=== PATIENT | male | born 1990 | race Caucasian/White ===

== ENCOUNTER 2018-04-27 19:34 | Emergency (ER) | payer OTHER ==
[~2018-04-27] VITALS: Ht 175.3 cm; Wt 68.0 kg
[~2018-04-27 19:34] MED LIST: AMBIEN 5 MG TABL5 M1 PO; AZITHROMYCIN 2250 MG PO; BUSPAR30 MG PO; CELEXA40 MG PO; DOXYCYCLINE 10100 MG PO; FLOMAX0.4 MG PO; IBUPROFEN 800800 M1 PO; LAMICTAL100 MG PO; MEDROL DOSPAK21 TAB PO; NOHOMEMEDICATIONS; NORCO 5-325 TA1 EACH PO; PROMETHAZINE/C118 ML PO; PROZAC40 MG PO; RITALIN20 MG PO; TAMSULOSIN HCL0.4 M1; ZOFRAN ODT4 MG PO; ZPAK PO; [UNRECOGNIZED DRUG - REMARK]
[2018-04-27] MEDS ORDERED: NORCO 5-325 TA1 EAC1 PO (20:16)
[2018-04-27] MEDS ORDERED: ERYTHROMYCIN E3.5 G2 OPHTHALMIC (20:16)
[2018-04-27] MEDS ORDERED: CYCLOPENTOLA1 %/2 M1 OPHTHALMIC (20:16)
[2018-04-27 20:27] VITALS: BP 147/84
== END 2018-04-27 20:29 | disposition home or self-care (01) ==
LOC: M.ERS 19:34
DX: S05.02XA Injury of conjunctiva and corneal abrasion without foreign body, left eye, initial encounter (principal); F17.200 Nicotine dependence, unspecified, uncomplicated; Z88.2 Allergy status to sulfonamides; W54.0XXA Bitten by dog, initial encounter; Y93.89 Activity, other specified; Y92.89 Other specified places as the place of occurrence of the external cause; Y99.8 Other external cause status

== ENCOUNTER 2019-04-26 16:50 | Emergency (ER) | payer OTHER ==
[~2019-04-26] VITALS: Ht 175.3 cm; Wt 68.0 kg
[~2019-04-26 16:50] MED LIST changes: +CYCLOPENTOLA1 %/2 M1 OPHTHALMIC; +ERYTHROMYCIN E3.5 G2 OPHTHALMIC; +NORCO 5-325 TA1 EAC1 PO
[2019-04-26] MEDS ORDERED: NAPROSYN500 M1 PO (17:02)
[2019-04-26] MEDS ORDERED: TIZANIDINE HCL 22 M1 PO (17:02)
[2019-04-26] MEDS ORDERED: AMBIEN CR12.5 MG PO (17:02)
[2019-04-26 17:24] LABS: INFLUENZA A ANTIGEN Positive (Negative); INFLUENZA B ANTIGEN Negative (Negative)
[2019-04-26] MEDS ORDERED: MEDROLDOSEPACK PO (18:12)
[2019-04-26] MEDS ORDERED: VENTOLIN HFA 1818 GM INH (18:12)
[2019-04-26] MEDS ORDERED: TAMIFLU75 MG PO (18:12)
[2019-04-26 18:29] VITALS: BP 131/78
== END 2019-04-26 18:30 | disposition home or self-care (01) ==
LOC: M.ERS 16:50
PROVIDERS: Nurse Practitioner Family
DX: J10.1 Influenza due to other identified influenza virus with other respiratory manifestations (principal); Z87.442 Personal history of urinary calculi; Z88.2 Allergy status to sulfonamides

== ENCOUNTER 2019-07-04 21:33 | Emergency (ER) | payer OTHER ==
[~2019-07-04] VITALS: Ht 172.7 cm; Wt 65.8 kg
[~2019-07-04 21:33] MED LIST changes: +AMBIEN CR12.5 MG PO; +MEDROLDOSEPACK PO; +NAPROSYN500 M1 PO; +TAMIFLU75 MG PO; +TIZANIDINE HCL 22 M1 PO; +VENTOLIN HFA 1818 GM INH
[2019-07-04 23:19] VITALS: BP 120/60
--- NOTE | 2019-07-05 08:57 | EKG ---
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
== END 2019-07-04 23:19 | disposition home or self-care (01) ==
LOC: M.ERS 21:33
DX: J21.9 Acute bronchiolitis, unspecified (principal); R07.89 Other chest pain; R09.1 Pleurisy; Z88.2 Allergy status to sulfonamides; Z87.442 Personal history of urinary calculi

== ENCOUNTER 2020-04-06 05:51 | Emergency (ER) | payer OTHER ==
[~2020-04-06] VITALS: Ht 175.3 cm; Wt 68.0 kg
[2020-04-06 06:19] LABS: ABSOLUTE BASOPHILS 0.1 thou/uL (0.0-0.2); ABSOLUTE EOSINOPHILS 0.3 thou/uL (0.0-0.7); ABSOLUTE LYMPHOCYTES 3.3 thou/uL (0.8-5.3); ABSOLUTE MONOCYTES 0.7 thou/uL (0.0-1.2); ABSOLUTE NEUTROPHILS 4.3 thou/uL (1.6-8.1); BASOPHILS 0.9 %; EOSINOPHILS 3.6 %; HEMOGLOBIN 15.1 gm/dL (14.0-18.0); LYMPHOCYTES 38.1 %; MCH 28.8 pg (26.0-34.0); MCHC 33.5 g/dL (28.0-37.0); MCV 85.9 fL (80.0-100.0); MONOCYTES 8.4 %; MPV 7.6 fl. (7.2-11.1); NUCLEATED RBCS 0 /100WBC; PLATELET COUNT* 266 thou/uL (150-400); RBC 5.24 mil/uL (4.50-6.00); RDW-CV 13.8 % (10.5-14.5); WBC 8.7 thou/uL (4.0-11.0)
[2020-04-06 06:26] LABS: CALCIUM 8.6 mg/dL (8.5-10.1); POTASSIUM 3.8 mmol/L (3.5-5.1)
[2020-04-06 06:33] LABS: ALBUMIN 3.9 g/dL (3.4-5.0); TOTAL BILIRUBIN 1.3 mg/dL (<0.1-1.0); TOTAL PROTEIN 7.2 g/dL (6.4-8.2)
[2020-04-06 07:13] LABS: URINE BILIRUBIN NEGATIVE (Negative); URINE BLOOD NEGATIVE (Negative); URINE CLARITY SL CLOUDY; URINE COLOR YELLOW; URINE GLUCOSE-RANDOM NEGATIVE (Negative); URINE KETONES NEGATIVE (Negative); URINE LEUKOCYTES-REFLEX NEGATIVE (Negative); URINE NITRITE-REFLEX NEGATIVE (Negative); URINE PROTEIN NEGATIVE (Negative); URINE SPECIFIC GRAVITY 1.015 (1.005-1.030); URINE UROBILINOGEN 0.2 E.U./dl (0.2-1.0)
[2020-04-06 07:18] LABS: CASTS None Seen /LPF (None Seen); MUCUS 0-3 Light strn/LPF (None Seen); SQUAMOUS NONE SEEN /LPF (0-3)
[2020-04-06 07:19] LABS: AMORPHOUS PHOSPHATES Moderate /LPF (None Seen); BACTERIA-REFLEX None Seen /HPF (None Seen); URINE RBC None Seen /HPF (0-2); URINE WBC-REFLEX 0-5 Rare /HPF (0-5)
[2020-04-06 07:41] LABS: AMP/METHAMP Negative (Negative); BARBITURATES Negative (Negative); BENZODIAZEPINES Negative (Negative); COCAINE Negative (Negative); METHADONE Negative (Negative); OPIATES Negative (Negative); PCP Negative (Negative); THC POSITIVE (Negative)
[2020-04-06] MEDS ORDERED: ZOFRAN ODT4 MG SUBLING (08:03)
[2020-04-06 08:15] VITALS: BP 132/80
--- NOTE | 2020-04-07 15:08 | EKG ---
[place] [address] ELECTROCARDIOGRAM REPORT Name: EVINEUFEMIA GOLDBERG Room: [facility]#: [id number] Admission: 04/06/20 Attend Phys: Discharge: 04/06/20 Date of : [birth year] Date of Service: 04/06/20620 Report #: [id number] THIS REPORT FOR: //name// [facility] ED Test Date: 2020-04-06 Test Time: 06:21:53 Pat Name: EUFEMIA CLEARY Department: Room: Gender: Credit Manager: [place] : 1990 Requested By: Red Cheung Order Number: [id number] : Hudson Rasmussen Measurements Intervals [place] Rate: 53 P: 25 [place]: 129 QRS: 66 QRSD: 102 T: 38 QT: 414 QTc: 389 Interpretive Statements Sinus arrhythmia Compared to ECG 07/04/2019 21:36:55 Sinus arrhythmia is noted and heart rate has slowed Electronically Signed On 04-07-2020 15:07:59 PHYSICAL MEDICINE PHYSICIAN by uHdson Rasmussen [email or web address] <ELECTRONICALLY SIGNED> By: Hudson Rasmussen MD, [facility] 04/07/20 1507 0621 Hudson Rasmussen MD, [facility] /EPI
== END 2020-04-06 08:15 | disposition home or self-care (01) ==
LOC: M.ERS 05:51
PROVIDERS: Emergency Medicine Emergency Medical Services; Family Medicine
DX: R11.15 Cyclical vomiting syndrome unrelated to migraine (principal); Z20.828 Contact with and (suspected) exposure to other viral communicable diseases; Z88.2 Allergy status to sulfonamides; Z87.442 Personal history of urinary calculi